=== PATIENT | female | born 1965 | race Caucasian/White ===

== ENCOUNTER 2023-05-23 15:19 | Inpatient (IN) | payer OTHER, SELFPAY ==
[2023-05-23 15:20] VITALS: BP 119/75; PULSE 107; RESP 18; TEMP 36.4; O2SAT 100; BMI 23.5
--- NOTE | 2023-05-23 16:19 | ED.VIS.GI ---
HPI HPI - GI History of Present Illness Chief Complaint: Abd Pain Detail of Chief Complaint: Right lower quadrant abdominal pain since this morning. Informant: patient Abdominal Pain/Flank Pain Onset: Today and Hours Context: Gradual Onset Timing: Continuous Location: RLQ Current Severity: Moderate Maximum Severity: Moderate Worsened by: Car ride Relieved by: Nothing Nausea/Vomiting/Emesis GI Symptom: Positive for Nausea; Negative for Vomiting Severity: Mild Diarrhea/Melena/Hematochezia GI Symptom: Negative for Diarrhea, Melena or Hematochezia Associated Symptoms Associated Symptoms: Negative for Dysuria, Frequency, Hematuria or Urgency Narrative Narrative: 58-year-old female no seen past medical history. Prior hysterectomy with oophorectomy. Said she started having suprapubic abdominal pain this morning is moved to the right lower quadrant. Associated nausea no vomiting. No diarrhea or fever. Is never had a kidney stone. Subjectively she has felt warm but no documented fever. Denies any trauma. Patient and her are from [place] visiting this area. Prior similar symptoms: No Recent Illness/Hospitalization: No PFSH PFSH Medical History no medical history no medical history Allergy/AdvReac Type Severity Reaction Status Date / Time No Known Allergies Allergy Verified 05/23/23 15:21 Social History Smoking Status: Never smoker ROS ROS ED ROS Narrative Right lower quadrant abdominal pain. Nausea. Review of Systems ROS Unobtainable: Denies due to encephalopathy Constitutional Constitutional ED: Reports fever(s) and subjective; Denies chills ENT ENT ED: Denies ear pain Cardiovascular Cardiovascular: Denies chest pain Respiratory/Chest Respiratory/Chest: Denies cough or dyspnea Gastrointestinal Gastrointestinal: Reports abdominal pain and nausea; Denies constipation, diarrhea, melena or vomiting Genitourinary Genitourinary ED: Denies dysuria or hematuria Musculoskeletal Musculoskeletal: Denies arthralgias Integumentary Denies abscess Neurologic Neurologic: Denies headache(s) Psychiatric Psychiatric: Denies anxiety Endocrine Endocrinology: Denies polydipsia Hematologic/Lymphatic Hematologic/Lymphatic: Denies easy bleeding Allergic/Immunologic Allergic/Immunologic ED: Denies mouth swelling or tongue swelling EXAM Physical Exam Narrative Exam Narrative: 58-year-old female vital signs stable afebrile. HEENT exam unremarkable. Lungs clear. Heart regular rhythm. No murmur. Rate about 100. Abdomen soft nondistended normal bowel sounds. Exquisitely tender right lower quadrant. No hernia or mass or distention. No pulsatile mass. Back nontender. No CVA tenderness. Moving all 4 extremities. Neurologically she is awake and alert. Const Vital Signs: 05/23/23 15:20 Temperature 97.5 F L Temperature Source Temporal Pulse Rate 107 H Respiratory Rate 18 Blood Pressure 119/75 Blood Pressure Mean 89 Pulse Ox 100 Oxygen Delivery Method Room Air Positive well nourished and well developed; Negative for obese, cachectic, contractures or unkempt General Appearance ED: well developed and NAD; Negative for unkempt, cachectic, contractures or pallor Nutritional Appearance: Negative for cachectic or obese HEENT Reports moist mucous membranes normocephalic and atraumatic; Negative for trauma or tenderness Eyes PERRL and EOMs intact bilaterally General Eye ED: Negative for pale conjunctiva or scleral icterus Neck no lymphadenopathy, supple and no JVD General: Negative for tenderness Carotids: Negative for other Resp normal respiratory effort Effort and Inspection: Negative for respiratory distress Auscultation: Negative for rales or rhonchi Cardio regular rate, regular rhythm, S1 normal heart sound, S2 normal heart sound and no murmurs Rate: Negative for bradycardia or tachycardic Rhythm: Negative for abnormal rhythm GI non-distended and no masses; Negative for non-tender Inspection: Negative for abdominal distention Auscultation: normoactive bowel sounds Palpation: soft, tender and guarding; Negative for rigid, hepatomegaly, splenomegaly, hernia, mass, pulsatile mass or rebound tenderness present Back/Spine no CVA tenderness General Back: Negative for CVA tenderness Cervical Spine: Negative for cervical spine tenderness Thoracic Spine / Upper Back: Negative for thoracic spinal tenderness Lumbar Spine / Lower Back: Negative for lumbar spinal tenderness Coccyx: Negative for other Extremity full ROM General Extremety ED: Negative for edema or tenderness General Extremity: Negative for edema Neuro CN's II-XII intact bilaterally and moves all extremities Sensorium / Orientation: alert, oriented to person, oriented to place and oriented to time; Negative for orientation impaired, confused, lethargic or stuporous Motor Exam: strength 5/5 throughout Psych mental status grossly normal and thought process normal Appearance: Negative for unkempt Attitude: No agitated Mood & Affect: Negative for depressed, anxious or tearful Skin no wounds General Skin Exam: Negative for jaundice or pallor Lesions: no lesions Rashes: no rashes Trauma: Negative for abrasion Nails: Negative for discolored MDM MDM MDM Narrative Medical decision making narrative: Patient with right lower quadrant abdominal pain differential which I think it is possibly appendicitis versus kidney stone but kidney stone should not be reproducibly tender which she definitely has. CAT scan labs are pending. She will be treated with IV morphine, Zofran for nausea and Toradol for pain. Patient's pain is improving with the pain medication. The CAT scan of the abdomen is read as right-sided diverticulitis. Clinically this presents more as appendicitis. I did have the patient evaluated by the general surgeon Dr. Dejan Dan. He evaluated the patient. He is going to admit her overnight for IV antibiotics through serial exams. And at this time is can hold off on surgery thinking that this is right-sided diverticulitis. Lab Data Attestation: I reviewed the patient's lab results. Lab results narrative: CBC shows a white count 17.4. H&H of 14 and 42. Platelets 234. Urinalysis shows no nitrates. No white or red cells. No bacteria. Chemistries show a gap of 7. Normal BUN and creatinine. Liver enzymes are normal. Glucose 104. Labs: Laboratory Results - last 24 hr 05/23/23 15:50 WBC 17.4 H RBC 4.53 Hgb 14.4 Hct 42.3 MCV 93.4 MCH 31.8 MCHC 34.0 RDW Std Deviation 41.1 RDW Coeff of Julio 11.9 Plt Count 234 MPV 11.1 Immature Gran % (Auto) 0.500 Neut % (Auto) 85.8 H Lymph % (Auto) 7.3 L [place] % (Auto) 6.0 Eos % (Auto) 0.1 Baso % (Auto) 0.3 Absolute Neuts (auto) 15.0 H Absolute Lymphs (auto) 1.28 Nucleated RBC % 0 Sodium 136 Potassium 3.7 Chloride 104 Carbon Dioxide 25.0 Anion Gap 7 BUN 12 Creatinine 0.77 Estim Creat Clear Calc 76.50 Est GFR (MDRD) Af Amer 99 Est GFR (MDRD) Non-Af 82 BUN/Creatinine Ratio 15.6 Glucose 104 Calcium 9.8 Total Bilirubin 0.50 AST 16 ALT 21 Alkaline Phosphatase 89 Total Protein 7.5 Albumin 3.9 Globulin 3.6 Albumin/Globulin Ratio 1.1 Urine Color Yellow Urine Clarity Sl. Cloudy Urine pH 8.0 Ur Specific [place] 1.015 Urine Protein Negative Urine Glucose (UA) Normal Urine Ketones Negative Urine Occult Blood 10 H Urine Nitrite Negative Urine Bilirubin Negative Urine Urobilinogen Normal Ur Leukocyte Esterase Negative Urine RBC 0 SEEN Urine WBC 0-5 SEEN Ur Squamous Epith Cells 0-5 SEEN Urine Bacteria 0 SEEN Urine Mucus 0 SEEN Radiography Diagnostic Testing: Clinical Impression(s) from Imaging Studies Abdomen/Pelvis CT 05/23/23 17:35 IMPRESSION: Diverticula of the cecum and ascending colon with inflammation and wall thickening of the cecum compatible with right-sided diverticulitis. There is no abscess or perforation. The appendix is within normal limits. Electronically Signed: Jerrod Evans MD at 18:17 EDT , Discharge Plan Dx/Rx/DC Orders Clinical Impression: Abdominal pain, Diverticulitis Disposition Disposition: Acute Care [facility]
[2023-05-23 16:28] LABS: Bacteria 0 SEEN /hpf (None Seen); Mucous, Urine 0 SEEN /hpf (<or=2+); Red Blood Cells-Urine 0 SEEN /hpf (0-5)
[2023-05-23] MEDS: Morphine 4 MG/ML Syringe 6 MG IV (16:29)
[2023-05-23] MEDS: Ondansetron 4 MG/2 ML Vial IV (16:29)
[2023-05-23] MEDS: Ketorolac 30 MG/ML Syringe IV (16:29)
[2023-05-23 16:32] LABS: Absolute Lymphocyte Count 1.28 X10^3/uL (0.83-4.51); Basophil# 0.05 X10^3/uL; Basophil% 0.3 % (0-1); Eosinophil# 0.02 X10^3/uL; Eosinophils% 0.1 % (0-5); Hematocrit 42.3 % (37-47); Hemoglobin 14.4 g/dL (12.0-15.0); Lymphocyte # 1.28 X10^3/ul (0.83-4.51); Lymphocyte % 7.3 % (19-41); Mean Corpuscular Hgb 31.8 pg (27.0-32.0); Mean Corpuscular Volume 93.4 fL (81-99); Mean Platelet Vol. 11.1 fl (6.2-12.0); Monocyte# 1.04 X10^3/uL; NRBC Flagged by Analyzer 0 % (0-5); Neutrophil # 14.97 X10^3/uL (2.7-7.7); Neutrophil % 85.8 % (47-70); Platelet Count 234 K/mm3 (150-450); RBC Distribution Width CV 11.9 % (11.6-14.6); RBC Distribution Width SD 41.1 fl (35.1-43.9); Red Blood Count 4.53 M/mm3 (4.2-5.4); White Blood Count 17.4 K/mm3 (4.4-11.0)
[2023-05-23 16:35] LABS: Color, Urine Yellow (Yellow); Glucose, Dipstick Normal (Normal); Ketone-Dipstick Negative (Negative); Leukocyte Esterase-Dipstick Negative /ul (Negative); Nitrite-Dipstick Negative (Negative); Occult Blood-Urine 10 /ul (Negative); Protein-Dipstick Negative (Negative); Specific Gravity, Urine 1.015 (1.002-1.030); Urine Bilirubin Dipstick Negative (Negative); Urine Clarity Sl. Cloudy (Clear); Urine Urobilinogen Normal (Normal)
[2023-05-23 16:46] LABS: Squamous Epithelial Cells - UA 0-5 SEEN /hpf (5-10); White Blood Cells 0-5 SEEN /hpf (0-5)
[2023-05-23 17:16] LABS: ALB/GLOB Ratio 1.1 RATIO (0.9-2.4); AST(SGOT) 16 U/L (15-37); Alanine Aminotransfer ALT/SGPT 21 U/L (13-56); Albumin, Serum 3.9 g/dL (3.2-5.0); Alkaline Phosphatase 89 U/L (45-117); Anion Gap 7 (5-15); BUN 12 mg/dL (7-18); BUN/Creat Ratio 15.6 RATIO (10-20); Calcium,Total 9.8 mg/dL (8.5-10.1); Chloride 104 mmol/L (98-107); Creatinine, Serum 0.77 mg/dL (0.55-1.02); EST Glomerular Filtration Rate 82 mL/min (>60); Est Glom Filt Rate - Afr Amer 99 mL/min (>60); Globulin 3.6 g/dL (2.2-4.2); Glucose 104 mg/dL (74-106); Potassium 3.7 mmol/L (3.5-5.1); Protein, Total 7.5 g/dL (6.4-8.2); Sodium Level 136 mmol/L (136-145)
--- NOTE | 2023-05-23 17:35 | CT_ITS ---
EXAM: CT ABDOMEN AND PELVIS WITH INTRAVENOUS CONTRAST CLINICAL INDICATION: RLQ abd pain appy vs stone TECHNIQUE: Helically acquired images were obtained of the abdomen and pelvis with intravenous contrast. This CT exam was performed using one or more of the following dose reduction techniques: automated exposure control, adjustment of the mA and/or kV according to patient size, and/or use of iterative reconstruction technique. CONTRAST: 100ML OF ISOVUE 300 COMPARISON: No relevant prior studies available. FINDINGS: LOWER THORAX: Unremarkable. Lung bases are clear. No cardiomegaly. No significant pericardial effusion. ABDOMEN: LIVER: Unremarkable. Homogeneous. No focal mass. GALLBLADDER AND BILE DUCTS: Unremarkable. No calcified gallstones. No gallbladder distention or wall edema. No intra- or extrahepatic biliary ductal dilation. PANCREAS: Unremarkable. No focal cystic or solid mass. SPLEEN: Unremarkable. Normal size without focal cystic or solid mass. ADRENALS: Unremarkable. No nodules. KIDNEYS AND URETERS: Unremarkable. Normal renal size and position. No hydronephrosis. STOMACH AND BOWEL: There are diverticula seen off the cecum and ascending colon. There is inflammation seen surrounding a diverticulum adjacent to the ileocecal valve compatible with right-sided diverticulitis. There is no abscess or perforation. The appendix is within normal limits. There is thickening of the wall of the cecum. No stomach or bowel distention. PELVIS: APPENDIX: No evidence of acute appendicitis. BLADDER: Unremarkable. REPRODUCTIVE: The patient is status post hysterectomy. ABDOMEN and PELVIS: INTRAPERITONEAL SPACE: Unremarkable. No ascites or other fluid collection. No free air. BONES/JOINTS: Unremarkable. No suspicious lytic or blastic abnormality. SOFT TISSUES: Unremarkable. No discrete abdominal or pelvic wall hernia. VASCULATURE: Unremarkable. Abdominal aorta is non-dilated. LYMPH NODES: Unremarkable. No enlarged lymph nodes. CT/Abdomen/Pelvis W IV Cont ONLY IMPRESSION: Diverticula of the cecum and ascending colon with inflammation and wall thickening of the cecum compatible with right-sided diverticulitis. There is no abscess or perforation. The appendix is within normal limits. Electronically Signed: Jerrod Evans MD at 18:17 EDT ,
--- NOTE | 2023-05-23 18:28 | ED.RN ---
Surgeon at bedside
--- NOTE | 2023-05-23 18:47 | HP.PCM_ITS ---
HPI - General General Date of Admission: 05/23/23 Chief Complaint: Acute onset abdominal pain HPI Narrative SILVANO WATKINS, is a 58 F who presents to [facility] ER with complaints of acute onset abdominal discomfort earlier this morning. She states that the pain began centrally and migrated to her right lower quadrant. She believes that there was an associated fever as she felt hot and flushed but no fever was objectively measured. She has never had discomfort of this character previously and initially suspected that she may have some sort of food poisoning following a barbecue yesterday. She and her are here from [facility] where they are visiting family. ER work-up was notable for CBC that demonstrates leukocytosis of [address] imaging of the abdomen pelvis which was read as consistent with right-sided diverticulitis. has a family history of a paternal grandfather who was diagnosed and succumbed to this diagnosis of colon cancer in his 40s. As a result she has been in high risk colon cancer screening going for colonoscopies every 2 years and underwent her most recent colonoscopy in November of this year. She was told at that time she was clear, but remarks that there was a inves tigation that revealed a polyp. She denies any personal history of diverticulosis with these exams. [facility] Medical History no medical history Allergy/AdvReac Type Severity Reaction Status Date / Time No Known Allergies Allergy Verified 05/23/23 15:21 Social History Smoking Status: Never smoker ROS Constitutional Constitutional: Reports fever(s) Gastrointestinal Gastrointestinal: Reports abdominal pain; Denies constipation or diarrhea Vital Signs Vital Signs Vital Signs: 05/23/23 15:20 Temperature 97.5 F L Temperature Source Temporal Pulse Rate 107 H Respiratory Rate 18 Blood Pressure 119/75 Blood Pressure Mean 89 Pulse Ox 100 Oxygen Delivery Method Room Air Weight Weight: 150 lb Body Mass Index (BMI) 23.5 Physical Exam Const alert and oriented x3 Constitutional Narrative: Mild distress from discomfort General Appearance: cooperative Resp normal respiratory effort GI GI Narrative: Slender, nondistended, soft, tender to palpation directly over McBurney's point. This seems to represent localized peritonitis. Results Lab / Micro Data 05/23/23 15:50 05/23/23 15:50 Labs: Laboratory Results - last 24 hr 05/23/23 15:50: WBC 17.4 H, RBC 4.53, Hgb 14.4, Hct 42.3, MCV 93.4, MCH 31.8, MCHC 34.0, RDW Std Deviation 41.1, RDW Coeff of Julio 11.9, Plt Count 234, MPV 11.1, Immature Gran % (Auto) 0.500, Neut % (Auto) 85.8 H, Lymph % (Auto) 7.3 L, [place] % (Auto) 6.0, Eos % (Auto) 0.1, Baso % (Auto) 0.3, Absolute Neuts (auto) 15.0 H, Absolute Lymphs (auto) 1.28, Nucleated RBC % 0, Sodium 136, Potassium 3.7, Chloride 104, Carbon Dioxide 25.0, Anion Gap 7, BUN 12, Creatinine 0.77, Estim Creat Clear Calc 76.50, Est GFR (MDRD) Af Amer 99, Est GFR (MDRD) Non-Af 82, BUN/Creatinine Ratio 15.6, Glucose 104, Calcium 9.8, Total Bilirubin 0.50, AST 16, ALT 21, Alkaline Phosphatase 89, Total Protein 7.5, Albumin 3.9, Globulin 3.6, Albumin/Globulin Ratio 1.1, Urine Color Yellow, Urine Clarity Sl. Cloudy, Urine pH 8.0, Ur Specific [place] 1.015, Urine Protein Negative, Urine Glucose (UA) Normal, Urine Ketones Negative, Urine Occult Blood 10 H, Urine Nitrite Negative, Urine Bilirubin Negative, Urine Urobilinogen Normal, Ur Leukocyte Esterase Negative, Urine RBC 0 SEEN, Urine WBC 0-5 SEEN, Ur Squamous Epith Cells 0-5 SEEN, Urine Bacteria 0 SEEN, Urine Mucus 0 SEEN Radiology Impression Abdomen/Pelvis CT 05/23/23 17:35 IMPRESSION: Diverticula of the cecum and ascending colon with inflammation and wall thickening of the cecum compatible with right-sided diverticulitis. There is no abscess or perforation. The appendix is within normal limits. Electronically Signed: Jerrod Evans MD at 18:17 EDT , Assessment & Plan Assessment/Plan (1) Diverticulitis: PLAN: This is a 58-year-old female who presents with signs and symptoms of right-sided diverticulitis. The symptoms began acutely this morning. She has no prior experience of diverticulitis nor diverticulosis despite multiple prior endoscopic exams. Initially both I and emergency medicine were concerned with possibility of acute appendicitis (potentially complicated) based on patient's sudden experience of discomfort and her exam, however, radiology reported a clearly normal appendix and their report. In my reevaluation of the imaging I was able to identify a 6 mm tubular structure containing air descending along the right pelvic sidewall and appeared to clearly represent a normal appendix. Given the concern for appendicitis, I had briefly discussed with the patient and her proceeding for a diagnostic laparoscopy and appendectomy?to which they consented?but upon noting a normal appendix on this imaging I notified [facility] medicine and called off this emergency operation. Plan for conservative management of diverticulitis with bowel rest, IV fluid support, and IV antibiotics following for patient's clinical response. Patient and her were revisited on the floor and both the above rationale and plan were clarified. All questions were answered to their satisfaction. Charges/Coding Visit Charges Inpatient E&M: 38684 Init Hosp L2
[2023-05-23 19:20] VITALS: BP 104/66; PULSE 85; RESP 18; TEMP 37.2; O2SAT 99
[2023-05-23 19:21] VITALS: RESP 18
[2023-05-23 19:55] VITALS: BP 98/58; PULSE 81; RESP 18; TEMP 36.9; O2SAT 100; BMI 22.6
[2023-05-23] MEDS: 0.9% Normal Saline 1,000 ML 125 ML IV (21:44)
[2023-05-24 01:54] VITALS: BP 90/51; PULSE 92; RESP 18; TEMP 37.3; O2SAT 96
[2023-05-24] MEDS: Ketorolac 15 MG/ML Vial IV (02:31)
[2023-05-24] MEDS: 0.9% Saline Lock 10 ML Syringe IV (02:31)
[2023-05-24 03:00] VITALS: BP 101/61; PULSE 90; RESP 18; TEMP 37.3; O2SAT 96
[2023-05-24] MEDS: 0.9% Normal Saline 1,000 ML 125 ML IV ×3 (03:09→20:21)
[2023-05-24 06:45] LABS: Absolute Lymphocyte Count 1.46 X10^3/uL (0.83-4.51); Absolute Neutrophil Count 12.1 X10^3/uL (2.0-7.7); Basophil# 0.02 X10^3/uL; Basophil% 0.1 % (0-1); Eosinophil# 0.01 X10^3/uL; Eosinophils% 0.1 % (0-5); Hematocrit 36.4 % (37-47); Hemoglobin 12.2 g/dL (12.0-15.0); Lymphocyte # 1.46 X10^3/ul (0.83-4.51); Mean Corp Hgb Conc 33.5 g/dL (32-36); Mean Corpuscular Hgb 32.5 pg (27.0-32.0); Mean Corpuscular Volume 97.1 fL (81-99); Monocyte# 1.01 X10^3/uL; Monocyte% 6.9 % (0-10); NRBC Flagged by Analyzer 0 % (0-5); Neutrophil # 12.11 X10^3/uL (2.7-7.7); Neutrophil % 82.6 % (47-70); Platelet Count 192 K/mm3 (150-450); RBC Distribution Width CV 12.5 % (11.6-14.6); RBC Distribution Width SD 44.5 fl (35.1-43.9); Red Blood Count 3.75 M/mm3 (4.2-5.4); White Blood Count 14.7 K/mm3 (4.4-11.0)
[2023-05-24 07:18] LABS: Anion Gap 6 (5-15); BUN 11 mg/dL (7-18); BUN/Creat Ratio 17.5 RATIO (10-20); Calcium,Total 8.4 mg/dL (8.5-10.1); Chloride 109 mmol/L (98-107); Creatinine, Serum 0.63 mg/dL (0.55-1.02); EST Glomerular Filtration Rate 103 mL/min (>60); Est Glom Filt Rate - Afr Amer 125 mL/min (>60); Estimated Creatinine Clearance 96.99 ml/min; Glucose 113 mg/dL (74-106); Phosphorus 3.1 mg/dL (2.5-4.9); Potassium 3.5 mmol/L (3.5-5.1); Sodium Level 139 mmol/L (136-145)
--- NOTE | 2023-05-24 08:22 | PN.SURG_ITS ---
Subjective Subjective Patient seen and examined during AM rounds. She reports that she had a difficult overnight course with more pain, but this responded well to an interval dose of Toradol. Nursing had also reported that patient's blood pressure was soft and they were concerned about dosing narcotic pain medication so patient was administered a 500 cc bolus and her blood pressure responded favorably. Patient complains of some thirst this morning but denies appetite. Objective Data Objective Data Vital Signs: Vital Signs Temp Pulse Resp BP Pulse Ox O2 Del Method 99.1 F 90 18 101/61 96 Room Air 05/24/23 03:00 05/24/23 03:00 05/24/23 03:00 05/24/23 03:00 05/24/23 03:00 05/24/23 03:00 Oxygen Delivery Method Room Air Weight: 148 lb 9.465 oz Body Mass Index (BMI) 22.6 Intake & Output: Intake and Output for Last 24 Hours 05/22/23 05/23/23 05/24/23 23:59 23:59 23:59 Intake Total 100 / 100 1177.08 / 1177.08 Balance 100 / 100 1177.08 / 1177.08 Lab / Micro Data 05/24/23 06:25 05/24/23 06:25 Labs: Laboratory Results - last 24 hr 05/23/23 15:50: WBC 17.4 H, RBC 4.53, Hgb 14.4, Hct 42.3, MCV 93.4, MCH 31.8, MCHC 34.0, RDW Std Deviation 41.1, RDW Coeff of Julio 11.9, Plt Count 234, MPV 11.1, Immature Gran % (Auto) 0.500, Neut % (Auto) 85.8 H, Lymph % (Auto) 7.3 L, [place] % (Auto) 6.0, Eos % (Auto) 0.1, Baso % (Auto) 0.3, Absolute Neuts (auto) 15.0 H, Absolute Lymphs (auto) 1.28, Nucleated RBC % 0, Sodium 136, Potassium 3.7, Chloride 104, Carbon Dioxide 25.0, Anion Gap 7, BUN 12, Creatinine 0.77, Estim Creat Clear Calc 76.50, Est GFR (MDRD) Af Amer 99, Est GFR (MDRD) Non-Af 82, BUN/Creatinine Ratio 15.6, Glucose 104, Calcium 9.8, Total Bilirubin 0.50, AST 16, ALT 21, Alkaline Phosphatase 89, Total Protein 7.5, Albumin 3.9, Globulin 3.6, Albumin/Globulin Ratio 1.1, Urine Color Yellow, Urine Clarity Sl. Cloudy, Urine pH 8.0, Ur Specific [place] 1.015, Urine Protein Negative, Urine Glucose (UA) Normal, Urine Ketones Negative, Urine Occult Blood 10 H, Urine Nitrite Negative, Urine Bilirubin Negative, Urine Urobilinogen Normal, Ur [place]one kocyte Esterase Negative, Urine RBC 0 SEEN, Urine WBC 0-5 SEEN, Ur Squamous Epith Cells 0-5 SEEN, Urine Bacteria 0 SEEN, Urine Mucus 0 SEEN 05/24/23 06:25: WBC 14.7 H, RBC 3.75 L, Hgb 12.2, Hct 36.4 L, MCV 97.1, MCH 32.5 H, MCHC 33.5, RDW Std Deviation 44.5 H, RDW Coeff of Julio 12.5, Plt Count 192, MPV 11.0, Immature Gran % (Auto) 0.300, Neut % (Auto) 82.6 H, Lymph % (Auto) 10.0 L, [place] % (Auto) 6.9, Eos % (Auto) 0.1, Baso % (Auto) 0.1, Absolute Neuts (auto) 12.1 H, Absolute Lymphs (auto) 1.46, Nucleated RBC % 0, Sodium 139, Potassium 3.5, Chloride 109 H, Carbon Dioxide 24.0, Anion Gap 6, BUN 11, Creatinine 0.63, Estim Creat Clear Calc 96.99, Est GFR (MDRD) Af Amer 125, Est GFR (MDRD) Non-Af 103, BUN/Creatinine Ratio 17.5, Glucose 113 H, Calcium 8.4 L, Phosphorus 3.1, Magnesium 2.0 Radiography Diagnostic Testing: Radiology Impression Abdomen/Pelvis CT 05/23/23 17:35 IMPRESSION: Diverticula of the cecum and ascending colon with inflammation and wall thickening of the cecum compatible with right-sided diverticulitis. There is no abscess or perforation. The appendix is within normal limits. Electronically Signed: Jerrod Evans MD at 18:17 EDT , Physical Exam Const oriented x3 Constitutional Narrative: Appears to have some mild discomfort Resp normal respiratory effort GI GI Narrative: Flat nondistended, soft, focally tender to palpation in the right lower quadrant which may be mildly improved on her intake exam Assessment & Plan Assessment/Plan (1) Diverticulitis: PLAN: This is a 58-year-old female hospital day 2 for admission for acute diverticulitis of the cecum and ascending colon. This morning her pain is somewhat improved after a dose of Toradol overnight. She still denies an appetite and complains of persistent tenderness directly over the right lower quadrant. Favorably, monitor white blood cell count and left shift are both imp roved. Still with her level of tenderness so I do not want to advance her diet quickly or transition her yet off of IV antibiotics. Neuro: As needed Dilaudid Pulm/CV: Continue to trend vitals?specifically blood pressure (suspect patient presented somewhat dehydrated based on her hemoglobin on intake) FEN/GI: Trend electrolytes, advantage to clear liquid diet, trend patient's abdominal exam : No current issues Heme/ID: Trend CBC, continue empiric Zosyn therapy Endo: No current issues Proph: SCDs Dispo: Continue inpatient stay Charges/Coding Visit Charges Inpatient E&M: 41060 Subs Hosp L2
[2023-05-24 09:16] VITALS: BP 115/74; PULSE 84; RESP 16; TEMP 37.2; O2SAT 97
[2023-05-24] MEDS: Acetaminophen 325 MG Tablet 650 MG PO ×2 (09:48→20:05)
--- NOTE | 2023-05-24 12:04 | CASEMGMT ---
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 Patient is only temporarily in [place] to visit family. Patient lives in [place], [place]. Rhonda SCHAFER
[2023-05-24 15:27] VITALS: BP 120/72; PULSE 80; RESP 16; TEMP 37.3; O2SAT 97
[2023-05-24] MEDS: HYDROmorphone 0.5 MG/0.5 ML SYRINGE IV ×2 (15:32→22:07)
[2023-05-24 21:30] VITALS: BP 107/62; PULSE 84; RESP 16; TEMP 37.1; O2SAT 95
[2023-05-24] MEDS: Ondansetron 4 MG/2 ML Vial IV (22:17)
[2023-05-25 04:00] VITALS: BP 96/58; PULSE 98; RESP 16; TEMP 38.2; O2SAT 96
[2023-05-25] MEDS: Acetaminophen 325 MG Tablet 650 MG PO ×2 (05:09→14:25)
[2023-05-25] MEDS: 0.9% Normal Saline 1,000 ML 125 ML IV ×2 (05:09→17:34)
[2023-05-25] MEDS: HYDROmorphone 0.5 MG/0.5 ML SYRINGE IV ×2 (05:10→21:15)
[2023-05-25 06:28] LABS: Absolute Neutrophil Count 10.2 X10^3/uL (2.0-7.7); Basophil# 0.02 X10^3/uL; Basophil% 0.2 % (0-1); Eosinophil# 0.03 X10^3/uL; Eosinophils% 0.2 % (0-5); Hematocrit 31.1 % (37-47); Hemoglobin 10.3 g/dL (12.0-15.0); Lymphocyte % 8.3 % (19-41); Mean Corp Hgb Conc 33.1 g/dL (32-36); Mean Corpuscular Hgb 32.8 pg (27.0-32.0); Mean Platelet Vol. 11.4 fl (6.2-12.0); Monocyte% 5.8 % (0-10); NRBC Flagged by Analyzer 0 % (0-5); Neutrophil # 10.23 X10^3/uL (2.7-7.7); Neutrophil % 84.9 % (47-70); Platelet Count 163 K/mm3 (150-450); RBC Distribution Width CV 12.6 % (11.6-14.6); RBC Distribution Width SD 45.7 fl (35.1-43.9); Red Blood Count 3.14 M/mm3 (4.2-5.4); White Blood Count 12.1 K/mm3 (4.4-11.0)
[2023-05-25 06:47] VITALS: TEMP 37.4
[2023-05-25 07:10] LABS: Anion Gap 1 (5-15); BUN 8 mg/dL (7-18); BUN/Creat Ratio 16.5 RATIO (10-20); Calcium,Total 8.1 mg/dL (8.5-10.1); Chloride 109 mmol/L (98-107); Creatinine, Serum 0.48 mg/dL (0.55-1.02); EST Glomerular Filtration Rate 139 mL/min (>60); Est Glom Filt Rate - Afr Amer 168 mL/min (>60); Glucose 112 mg/dL (74-106); Potassium 3.2 mmol/L (3.5-5.1); Sodium Level 139 mmol/L (136-145)
--- NOTE | 2023-05-25 08:07 | PCM.PN.SRG ---
Subjective Subjective Seen and examined during AM rounds. She is found resting in bed. She states that she feels somewhat better this morning. She is concerned that she has been having some low-grade temperatures. Overall tolerated. She confirms that the clear liquids initiated yesterday have been tolerated. She has not yet had a bowel movement since admission. Objective Data Objective Data Vital Signs: Vital Signs Temp Pulse Resp BP Pulse Ox O2 Del Method 99.3 F H 98 16 96/58 L 96 Room Air 05/25/23 06:47 05/25/23 04:00 05/25/23 04:00 05/25/23 04:00 05/25/23 04:00 05/25/23 04:00 Oxygen Delivery Method Room Air Weight: 148 lb 9.465 oz Body Mass Index (BMI) 22.6 Intake & Output: Intake and Output for Last 24 Hours 05/23/23 05/24/23 05/25/23 23:59 23:59 23:59 Intake Total 100 / 100 3172.91 / 3172.91 1350 / 1350 Balance 100 / 100 3172.91 / 3172.91 1350 / 1350 Lab / Micro Data 05/25/23 06:06 05/25/23 06:06 Labs: Laboratory Results - last 24 hr 05/25/23 06:06: WBC 12.1 H, RBC 3.14 L, Hgb 10.3 L, Hct 31.1 L, MCV 99.0, MCH 32.8 H, MCHC 33.1, RDW Std Deviation 45.7 H, RDW Coeff of [place] 12.6, Plt Count 163, MPV 11.4, Immature Gran % (Auto) 0.600, Neut % (Auto) 84.9 H, Lymph % (Auto) 8.3 L, [place] % (Auto) 5.8, Eos % (Auto) 0.2, Baso % (Auto) 0.2, Absolute Neuts (auto) 10.2 H, Absolute Lymphs (auto) 1.00, Nucleated RBC % 0, Sodium 139, Potassium 3.2 L, Chloride 109 H, Carbon Dioxide 29.0, Anion Gap 1 L, BUN 8, Creatinine 0.48 L, Estim Creat Clear Calc 127.30, Est GFR (MDRD) Af Amer 168, Est GFR (MDRD) Non-Af 139, BUN/Creatinine Ratio 16.5, Glucose 112 H, Calcium 8.1 L Physical Exam Const oriented x3 and no apparent distress Resp normal respiratory effort GI GI Narrative: Nondistended, soft, persistently tender to palpation in the right lower quadrant which patient states is modestly improved. Assessment & Plan Assessment/Plan (1) Diverticulitis: PLAN: This is a 58-year-old female hospital day 3 for admission for acute diverticulitis of the cecum and ascending colon. This morning her pain is once again somewhat improved. She has experienced some low-grade fevers with a Tmax of 100.7 Fahrenheit. I have informed her this could simply represent a favorable response from her immune system as her white blood cell count continues to downtrend. She has tolerated clear liquids but has not yet had a bowel movement. I have discussed options for treatment including continued watchful waiting versus surgery. I have recommended another day of monitoring given her interval clinical improvements, but with her level of tenderness so I do not want to advance her diet or transition her yet off of IV antibiotics. Neuro: As needed Dilaudid, as needed acetaminophen Pulm/CV: Continue to trend vitals?specifically blood pressure (which is overall improved) FEN/GI: Trend electrolytes?replete hypokalemia today, continue clear liquid diet, trend patient's abdominal exam : No current issues Heme/ID: Trend CBC, continue empiric Zosyn therapy Endo: No current issues Proph: SCDs, patient encouraged to ambulate Dispo: Continue inpatient stay
[2023-05-25] MEDS: Potassium Chloride 10mEq/100mL 10 MEQ/100 ML IV.SOLN. 100 MEQ IV BOLUS (08:11)
[2023-05-25 10:00] VITALS: BP 90/52; PULSE 78; RESP 18; TEMP 37.1; O2SAT 93
--- NOTE | 2023-05-25 15:00 | CASEMGMT ---
RN CM MOBILITY ARCHITECT MANAGER CM to room to meet with patient for initial transition planning/care coordination assessment. RN ORACIO introduced self and role at [facility].? Pt voices understanding and consents to assessment at this time.? Pt resting in bed in no distress at this time.? Pt is A/O at this time and answers all questions appropriately.?? Care providers, pharmacy, and demographics verified/updated at this time. PCP: Dr Simona Han in [place]. Specialists: Dr Niall Morejon in [place], Recovery Operator Helper in [place] Preferred Pharmacy: [facility] Retail Insurance: Commercial Living Will/HPOA:? Has both LW and HCPOA, who is her , Hero LNOK: , Hero Living Arrangements: Pt lives w/her in 2-story home w/3 steps to enter. Denies difficulty w/stairs. Indep w/ADL's and IADL's. 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 Transportation: Pt states drives self and states no transportation concerns at this time.? also drives. DME: ? Denies using any DME and denies needs.? HHC/SNF: No hx of either. Pt denies needs and no needs identified. Pt wishes to return home and states has no concerns with going home at time of discharge.? CM to follow for home oxygen needs and any further discharge planning/needs.? Pt voices no further concerns/needs at this time.? Advised pt to ask for CM if any further questions/concerns/needs arise.? Voices understanding. PLAN: ?Home Art ROBERTS RN, CM
[2023-05-25] MEDS: Potassium Chloride Oral Tablet 20 MEQ 40 MEQ PO (17:34)
[2023-05-25] MEDS: Ondansetron 4 MG/2 ML Vial IV (21:15)
[2023-05-25 21:30] VITALS: BP 106/57; PULSE 93; RESP 16; TEMP 37.1; O2SAT 96
[2023-05-26] MEDS: 0.9% Normal Saline 1,000 ML 125 ML IV ×2 (01:17→07:51)
[2023-05-26] MEDS: Acetaminophen 325 MG Tablet 650 MG PO (01:19)
[2023-05-26 03:30] VITALS: BP 104/58; PULSE 75; RESP 16; TEMP 37.2; O2SAT 95
[2023-05-26 07:18] LABS: Absolute Neutrophil Count 7.9 X10^3/uL (2.0-7.7); Basophil# 0.02 X10^3/uL; Basophil% 0.2 % (0-1); Eosinophil# 0.06 X10^3/uL; Eosinophils% 0.6 % (0-5); Hematocrit 31.8 % (37-47); Hemoglobin 10.6 g/dL (12.0-15.0); Lymphocyte % 14.7 % (19-41); Mean Corp Hgb Conc 33.3 g/dL (32-36); Mean Corpuscular Hgb 32.7 pg (27.0-32.0); Mean Corpuscular Volume 98.1 fL (81-99); Mean Platelet Vol. 11.1 fl (6.2-12.0); Monocyte# 0.73 X10^3/uL; Monocyte% 7.1 % (0-10); NRBC Flagged by Analyzer 0 % (0-5); Neutrophil # 7.89 X10^3/uL (2.7-7.7); Neutrophil % 77.1 % (47-70); Platelet Count 165 K/mm3 (150-450); RBC Distribution Width CV 12.4 % (11.6-14.6); RBC Distribution Width SD 45.1 fl (35.1-43.9); Red Blood Count 3.24 M/mm3 (4.2-5.4); White Blood Count 10.2 K/mm3 (4.4-11.0)
[2023-05-26 07:57] LABS: Anion Gap 5 (5-15); BUN 5 mg/dL (7-18); BUN/Creat Ratio 9.5 RATIO (10-20); Calcium,Total 8.4 mg/dL (8.5-10.1); Chloride 111 mmol/L (98-107); Creatinine, Serum 0.53 mg/dL (0.55-1.02); EST Glomerular Filtration Rate 126 mL/min (>60); Est Glom Filt Rate - Afr Amer 153 mL/min (>60); Estimated Creatinine Clearance 115.29 ml/min; Glucose 85 mg/dL (74-106); Phosphorus 2.6 mg/dL (2.5-4.9); Potassium 3.4 mmol/L (3.5-5.1); Sodium Level 140 mmol/L (136-145)
[2023-05-26 09:30] VITALS: BP 110/62; PULSE 65; RESP 18; TEMP 36.8; O2SAT 96
[2023-05-26] MEDS: Potassium Chloride Oral Tablet 20 MEQ 40 MEQ PO (10:38)
--- NOTE | 2023-05-26 11:13 | PCM.PN.SRG ---
Subjective Subjective Patient seen and examined during AM rounds. She reports 2 bowel movements this morning. She states that these were loose in character and the first was rather dark in color. With these bowel movements she has noted a significant improvement in her discomfort and reports a increased appetite. Objective Data Objective Data Vital Signs: Vital Signs Temp Pulse Resp BP Pulse Ox O2 Del Method 98.3 F 65 18 110/62 96 Room Air 05/26/23 09:30 05/26/23 09:30 05/26/23 09:30 05/26/23 09:30 05/26/23 09:30 05/26/23 09:30 Oxygen Delivery Method Room Air Weight: 148 lb 9.465 oz Body Mass Index (BMI) 22.6 Intake & Output: Intake and Output for Last 24 Hours 05/24/23 05/25/23 05/26/23 23:59 23:59 23:59 Intake Total 3172.91 / 3172.91 4060 / 4995 2770.41 / 2770.41 Balance 3172.91 / 3172.91 4060 / 4995 2770.41 / 2770.41 Lab / Micro Data 05/26/23 05:55 05/26/23 06:45 Labs: Laboratory Results - last 24 hr 05/26/23 05:55: WBC 10.2, RBC 3.24 L, Hgb 10.6 L, Hct 31.8 L, MCV 98.1, MCH 32.7 H, MCHC 33.3, RDW Std Deviation 45.1 H, RDW Coeff of Julio 12.4, Plt Count 165, MPV 11.1, Immature Gran % (Auto) 0.300, Neut % (Auto) 77.1 H, Lymph % (Auto) 14.7 L, Haines % (Auto) 7.1, Eos % (Auto) 0.6, Baso % (Auto) 0.2, Absolute Neuts (auto) 7.9 H, Absolute Lymphs (auto) 1.50, Nucleated RBC % 0 05/26/23 06:45: Sodium 140, Potassium 3.4 L, Chloride 111 H, Carbon Dioxide 24.0, Anion Gap 5, BUN 5 L, Creatinine 0.53 L, Estim Creat Clear Calc 115.29, Est GFR (MDRD) Af Amer 153, Est GFR (MDRD) Non-Af 126, BUN/Creatinine Ratio 9.5 L, Glucose 85, Calcium 8.4 L, Phosphorus 2.6, Magnesium 2.0 Physical Exam Const oriented x3 and no apparent distress Resp normal respiratory effort GI GI Narrative: Nondistended, soft, mildly tender to palpation over right lower quadrant which focally is reported as a 5 out of 10 Assessment & Plan Assessment/Plan (1) Diverticulitis: PLAN: This is a 58-year-old female hospital day 4 for admission for acute diverticulitis of the cecum and ascending colon. This morning patient reports significant improvements in her discomfort, return of an appetite, and now having bowel movements. Clinically she appears well and her leukocytosis has resolved with improvements in her left shift as well. Lastly her exam is reassuring. I have discussed advancing her diet and transitioning to oral antibiotic. If she makes these transitions without difficulty, we will reassess for possible discharge to home later today. Neuro: Discontinue as needed Dilaudid, continue as needed acetaminophen Pulm/CV: Continue to trend vitals?specifically blood pressure (which is overall improved) FEN/GI: Trend electrolytes?replete hypokalemia again today, advance to regular diet with low fiber, trend patient's abdominal exam : No current issues Heme/ID: Hemoglobin down trended, but felt to be primarily due to hemodilution, leukocytosis resolved; transition to Augmentin Endo: No current issues Proph: SCDs, patient encouraged to ambulate Dispo: Reassess for possible discharge to home later today Charges/Coding Visit Charges Inpatient E&M: 34047 Subs Hosp L2
[2023-05-26] MEDS: Amox/Clavulanate 875 MG Tablet PO (13:12)
--- NOTE | 2023-05-26 16:19 | DCINST_ITS ---
Discharge Instructions Diet Discharge Diet: - (Low fiber diet) Activity Discharge Activity: May Drive and May Shower Dressing / Incision Call your doctor if you observe: Fever of 101 or Higher and Uncontrolled pain Follow Up Care Please Follow Up With: Dejan Dan MD When: 1 week Test Results: Test results from this visit will be discussed in further detail at your follow- up appointment, if applicable. Discharge Plan Admission Admit Date/Time: 05/23/23 20:59 Primary Reason for Your Visit: Acute diverticulitis Attending Provider: Dejan Dan Discharge Orders/Prescriptions Prescriptions: New amoxicillin-pot clavulanate 875-125 mg Tablet 1 tab PO BID 6 Days Qty: 12 0RF Referrals / Follow Up: [facility] [address] Doctor,Out of [Non-Staff] - Disposition Disposition (needs filled in before D/C Order can be placed): Home, Self Care
[2023-05-26 16:21] VITALS: BP 110/62; PULSE 65; RESP 18; TEMP 36.8
--- NOTE | 2023-05-26 16:23 | PCM.DC.SUM ---
Providers Date of Admission: 05/23/23 Reason For Visit: ACUTE DIVERTICULITIS Diagnosis Discharge Diagnosis (1) Diverticulitis: Status: Acute Code(s): K57.92 - Diverticulitis of intestine, part unspecified, without perforation or abscess without bleeding Plan: This is a 58-year-old female hospital day 4 for admission for acute diverticulitis of the cecum and ascending colon. This morning patient reports significant improvements in her discomfort, return of an appetite, and now having bowel movements. Clinically she appears well and her leukocytosis has resolved with improvements in her left shift as well. Lastly her exam is reassuring. I have discussed advancing her diet and transitioning to oral antibiotic. If she makes these transitions without difficulty, we will reassess for possible discharge to home later today. Neuro: Discontinue as needed Dilaudid, continue as needed acetaminophen Pulm/CV: Continue to trend vitals?specifically blood pressure (which is overall improved) FEN/GI: Trend electrolytes?replete hypokalemia again today, advance to regular diet with low fiber, trend patient's abdominal exam : No current issues Heme/ID: Hemoglobin down trended, but felt to be primarily due to hemodilution, leukocytosis resolved; transition to Augmentin Endo: No current issues Proph: SCDs, patient encouraged to ambulate Dispo: Reassess for possible discharge to home later today Medications at Discharge Home Medications amoxicillin 875 mg-potassium clavulanate 125 mg tablet 1 tab PO BID 6 days #12 tabs 05/26/23 Hospital Course Operations None Summary of Care Provided Hospital Course: Patient is a 58-year-old female who is admitted to [facility] on 05/23/2023 after an ER presentation for acute onset right lower quadrant discomfort. Work-up by emergency medicine revealed a diagnosis of acute diverticulitis involving the cecum and ascending colon. No perforation was evident from patient's CT exam and given her clinical stability conservative course of treatment was recommended. Patient was thus initially held n.p.o. with IV antibiotics. Over the ensuing 3 days her abdominal exam was trended alongside of her CBC. Her abdominal exam significantly improved from yesterday to today (hospital day 4) and her CBC showed normalization of her leukocytosis from an index value of 17-10 today. With these changes, Ms. Dawood Trent's diet was advanced and her antibiotic was transitioned to p.o. Augmentin. She was reassessed after these changes were made and found to be further improved from a symptom standpoint. Therefore, after confirming outpatient treatment strategy with diet restriction, ongoing antibiotics, and outpatient follow-up discharge to home was granted. Given [place], they have been strongly urged to set up a primary care provider visit upon their arrival back in [facility]. Patient confirms that this is already part of her plans. Physical Exam Const alert, oriented x3 and no apparent distress Resp normal respiratory effort GI GI Narrative: Nondistended, soft, minimally tender to palpation in right lower quadrant (rated 3 out of 10) Weight / BMI Weight Weight: 148 lb 9.465 oz Body Mass Index (BMI) 22.6 ABG / Lab / Microbiology Data 05/26/23 05:55 05/26/23 06:45 Laboratory: Laboratory Results - last 24 hr 05/26/23 05:55: WBC 10.2, RBC 3.24 L, Hgb 10.6 L, Hct 31.8 L, MCV 98.1, MCH 32.7 H, MCHC 33.3, RDW Std Deviation 45.1 H, RDW Coeff of Julio 12.4, Plt Count 165, MPV 11.1, Immature Gran % (Auto) 0.300, Neut % (Auto) 77.1 H, Lymph % (Auto) 14.7 L, [place] % (Auto) 7.1, Eos % (Auto) 0.6, Baso % (Auto) 0.2, Absolute Neuts (auto) 7.9 H, Absolute Lymphs (auto) 1.50, Nucleated RBC % 0 05/26/23 06:45: Sodium 140, Potassium 3.4 L, Chloride 111 H, Carbon Dioxide 24.0, Anion Gap 5, BUN 5 L, Creatinine 0.53 L, Estim Creat Clear Calc 115.29, Est GFR (MDRD) Af Amer 153, Est GFR (MDRD) Non-Af 126, BUN/Creatinine Ratio 9.5 L, Glucose 85, Calcium 8.4 L, Phosphorus 2.6, Magnesium 2.0 D/C Instructions Discharge Diet: - (Low fiber diet) Call your doctor if you observe: Fever of 101 or Higher and Uncontrolled pain Please Follow Up With: Dejan Dan MD When: 1 week Meaningful Use Info Meaningful Use Diagnoses (Choose all that apply): None applicable Discharge Plan Admission Admit Date/Time: 05/23/23 20:59 Primary Reason for Your Visit: Acute diverticulitis Attending Provider: Dejan Dan Discharge Orders/Prescriptions Prescriptions: New amoxicillin-pot clavulanate 875-125 mg Tablet 1 tab PO BID 6 Days Qty: 12 0RF Referrals / Follow Up: Town Doctor,Out of [Non-Staff] - Disposition Disposition (needs filled in before D/C Order can be placed): Home, Self Care Charges/Coding Visit Charges Inpatient E&M: 34628 Disch Hosp
--- NOTE | 2023-05-26 17:00 | NURSING ---
patient discharged per orders. to call antibiotic into [facility] pharmacy. Patient and family verbalized understanding to discharge orders and to follow up with Dr. Dan this week.
--- NOTE | 2023-05-28 10:30 | CASEMGMT ---
JAN NARAYANAN NOTE: VM received from Damian Gonzalez RN, @ [facility] PH: [phone], Case # [id number], inquiring if pt is still @ [facility] or if she has been discharged. Call back to Damian and notified her pt was discharged 05/26. Art ROBERTS RN CM
== END 2023-05-26 17:00 | disposition home or self-care (01) | DRG 392 ==
LOC: ED 18:48 → PCU 22:24
PROVIDERS: Physician Assistant; Admitting Provider Surgery; Emergency Provider Emergency Medicine; Visit Provider Surgery
DX: K57.32 Diverticulitis of large intestine without perforation or abscess without bleeding (principal); Z80.3 Family history of malignant neoplasm of breast
CPT/HCPCS: 36415; 74177; 80048; 80053; 81001; 83735; 84100; 85025; 99285; J7030; J7040; J7050; Q9967; A4216; J2405